=== PATIENT | female | born 1970 | race Caucasian/White ===

== ENCOUNTER → 2016-12-16 | Outpatient (CLI) | payer OTHER | LOC: FIMAGING 13:47 | PROVIDERS: ATTEND Internal Medicine | DX: Z12.31 Encounter for screening mammogram for malignant neoplasm of breast (principal) | CPT/HCPCS: G0202 ==

== ENCOUNTER → 2017-01-05 | Outpatient (CLI) | payer OTHER | LOC: FIMAGING 09:13 | PROVIDERS: ATTEND Surgery | DX: K21.9 Gastro-esophageal reflux disease without esophagitis (principal) ==

== ENCOUNTER 2017-01-16 05:57 | Observation (INO) | payer OTHER ==
[2017-01-16] MEDS ORDERED: LIDOCAINE 1% 2 ML INJ ID PRN (06:29)
[2017-01-16] MEDS ORDERED: LR 1,000 ML IV ONE (06:29)
[2017-01-16] MEDS ORDERED: LIDOCAINE 1% 5 ML SDV ONE (06:31)
[2017-01-16] MEDS ORDERED: BUPIVACAINE 0.5% 30 ML SDV ONE (06:33)
[2017-01-16] MEDS ORDERED: MIDAZOLAM 2 MG/2 ML VIAL IVP ONE (06:56)
[2017-01-16] MEDS ORDERED: SCOPOLAMINE HYDROBROMIDE 1.5 MG PATCH TD SCH (07:00)
--- NOTE | 2017-01-16 07:00 | PDANEPAE ---
ANE History of Present Illness Otherwise healthy female with PMH of well controlled GERDs with prilosec. She is also on meloxican for lower back pain. Denies other medical issues and has had anesthesia without complications. ANE Past Medical History - Cardiovascular History Hx Hypertension: No Hx Arrhythmias: No Hx Chest Pain: No Hx Coronary Artery / Peripheral Vascular Disease: No Hx CHF / Valvular Disease: No Hx Palpitations: No - Pulmonary History Hx COPD: No Hx Asthma/Reactive Airway Disease: No Hx Recent Upper Respiratory Infection: No Hx Oxygen in Use at Home: No - Neurologic History Hx Cerebrovascular Accident: No Hx Seizures: No Hx Dementia: No - Endocrine History Hx Diabetes: No - Renal History Hx Renal Disorders: No - Liver History Hx Hepatic Disorders: No - Neurological & Psychiatric Hx Hx Neurological and Psychiatric Disorders: No - Cancer History Hx Cancer: No - Congenital Disorder History Hx Congenital Disorders: No - GI History Hx Gastrointestinal Disorders: Yes - Chronic Pain History Chronic Pain: No ANE Review of Systems - Exercise capacity METS (RN): 5 METS ANE Patient History - Allergies Allergies/Adverse Reactions: No Known Allergies Allergy (Verified 01/16/17 06:13) - Home Medications Home Medications: Herbals/Supplements -Info Only 1 ea PO DAILY 12/30/16 [Last Taken 01/15/17] Omeprazole [Prilosec 20 mg] 20 mg PO DAILY 12/30/16 [Last Taken 01/15/17] Meloxicam 01/16/17 [Last Taken 01/15/17] - NPO status NPO Since - Liquids (Date): 01/15/17 NPO Since - Liquids (Time): 23:00 NPO Since - Solids (Date): 01/15/17 NPO Since - Solids (Time): 18:00 - Smoking Hx Smoking Status: Never smoked - Family Anes Hx Family Hx Anesthesia Complications: none ANE Labs/Vital Signs - Vital Signs Blood Pressure: 149/93 Heart Rate: 68 Respiratory Rate: 16 O2 Sat (%): 96 Height: 160.02 cm Weight: 77.111 kg ANE Physical Exam - Airway Neck exam: FROM Mallampati Score: Class 1 Mouth exam: normal dental/mouth exam - Pulmonary Pulmonary: no respiratory distress - Cardiovascular Cardiovascular: regular rate and rhythym - ASA Status ASA Status: II ANE Anesthesia Plan Anesthesia Plan: general endotracheal anesthesia Urgent/Emergent Case: Billy wilson completed preop but documented later for safe timely pt care
[2017-01-16] MEDS ORDERED: SCOPOLAMINE HYDROBROMIDE 1.5 MG PATCH TD ONE (07:01)
[2017-01-16] MEDS ORDERED: HYDROmorphONE/DILAUDID 2 MG/ML INJ ONE (07:02)
[2017-01-16] MEDS ORDERED: PROPOFOL 200 MG/20 ML VIAL ONE (07:02)
[2017-01-16] MEDS ORDERED: fentaNYL 100 MCG/2 ML INJ ONE (07:02)
[2017-01-16] MEDS ORDERED: DEXAMETHASONE 4 MG/ML VIAL ONE (07:02)
[2017-01-16] MEDS ORDERED: ONDANSETRON 4 MG/2 ML VIAL ONE (07:02)
[2017-01-16] MEDS ORDERED: ROCURONIUM 50 MG/5 ML VIAL ONE (07:02)
--- NOTE | 2017-01-16 07:22 | PDGENHP ---
History and Physical History and Physical: HPI: H/o GERD. Currently on PPI's with symptoms. EGD shows min HH. PMHx: LBP, GERD Meds: meloxicam, omeprazole NKDA PE: VSS Alert, NAD RRR CTA B Abd soft, NTTP A/P: GERD. Risks/benefits of robotic fundoplication reviewed, questions answered. Will proceed with fundoplication.
[2017-01-16] MEDS ORDERED: NEOSTIGMINE METHYLSULFATE 5 MG/5 ML SYR ONE (08:06)
[2017-01-16] MEDS ORDERED: GLYCOPYRROLATE 0.2 MG/1 ML VIAL ONE ×2 (08:06)
[2017-01-16] MEDS ORDERED: OXYCODONE/APAP 5/325 TAB PO PRN ×2 (08:16→09:49)
[2017-01-16] MEDS ORDERED: MEPERIDINE 25 MG/ML SYR IVP PRN (08:16)
[2017-01-16] MEDS ORDERED: LR 500 ML IV PRN (08:16)
[2017-01-16] MEDS ORDERED: fentaNYL 100 MCG/2 ML INJ IVP PRN (08:16)
[2017-01-16] MEDS ORDERED: HYDROmorphONE/DILAUDID 1 MG/ML SYR IVP PRN ×2 (08:16→09:49)
[2017-01-16] MEDS ORDERED: NALOXONE HCL 0.4 MG/ML INJ IVP PRN (08:16)
[2017-01-16] MEDS ORDERED: METOCLOPRAMIDE 10 MG/2 ML VIAL IVP PRN (08:16)
[2017-01-16] MEDS ORDERED: ONDANSETRON 4 MG/2 ML VIAL IVP PRN (09:49)
--- NOTE | 2017-01-16 09:51 | POSTOPPROG ---
Post Op Note Date of Operation: 01/16/17 Surgeon: Kai Álvarez Clinical Editor: Vivi Barros Anesthesiologist: Dr. Cordero Anesthesia: GET(General Endotracheal) Pre-op Diagnosis: GERD Post-op Diagnosis: GERD Procedure: Robotic fundoplication/HH repair Findings: Mod HH Inf/Abcess present in the surg proc area at time of surgery?: No EBL: Minimal
--- NOTE | 2017-01-16 09:57 | POSTANESTH ---
Post Anesthetic Evaluation Cardiovascular Status: Normal, Stable Respiratory Status: Normal, Stable Level of Consciousness/Mental Status: Can Participate in Eval Pain Control: Adequate, Prn Tx Ordered Nausea/Vomiting Control: Adequate, Prn Tx Ordered Complications Possibly Related to Anesthesia: None Noted
[2017-01-16] MEDS ORDERED: LR 1,000 ML IV SCH (10:00)
--- NOTE | 2017-01-16 10:49 | GOP ---
[f rep st] OPERATIVE REPORT DATE OF OPERATION: 01/16/2017 SURGEON: Facundo Álvarez MD 4TH GRADE MATH TEACHER: Vivi Barros CFA, whose presence was requested by me and medically necessary for the safe and timely completion of this case. ANESTHESIA: General endotracheal anesthesia. ANESTHESIOLOGIST: Dr. Escobar. PREOPERATIVE DIAGNOSIS: Gastroesophageal reflux disease. POSTOPERATIVE DIAGNOSIS: Gastroesophageal reflux disease. PROCEDURE PERFORMED: Robotic partial fundoplication with hiatal hernia repair. FINDINGS: Patient had a moderate hiatal hernia. ESTIMATED BLOOD LOSS: 20 cc. INDICATIONS: 47-year-old female with a history of reflux. Risks and benefits of the procedure were discussed with the patient, questions were answered. She wished to proceed. DESCRIPTION OF PROCEDURE: The patient was in the supine position initially. After the induction of adequate general endotracheal anesthesia, the patient was moved to the modified lithotomy position. The patient was then prepped and draped in the standard surgical fashion. Marcaine 0.5% was injected throughout the supraumbilical area for local anesthesia. An 8-mm incision was made and the abdominal wall was elevated. A Veress needle was inserted and after noting proper pressures, the abdomen was insufflated with carbon dioxide. An 8-mm trocar was placed and a camera followed. There was no apparent damage from trocar placement. Four more ports were placed, three 8-mm ports in the upper abdomen and one 5-mm port in the right mid abdomen. These were all placed under direct vision after injecting 0.5% Marcaine for local anesthesia. The robot was then docked without difficulty. Robotic instruments were then used to perform the dissection. The Harmonic scalpel was used to take down the gastrohepatic ligament. Dissection was then carried over the esophagus exposing the right eli. The dissection proceeded laterally and the superior portion of the esophagus and the left eli were exposed. The vagus nerves were seen and preserved throughout the entire case. Next, the posterior window was opened using blunt dissection and the Harmonic scalpel. Once this window was achieved, attention was turned to the short gastrics. A significant portion of the short gastric vessels was taken down using a Harmonic scalpel. This freed up the fundus in its entirety. The mediastinal dissection was then performed. This was carefully performed using blunt dissection and minimal energy component. Once the entire visible portion of the esophagus was freed and the gastroesophageal junction returned to the abdomen, the repair of the hiatal hernia ensued. Interrupted sutures of 3-0 silk were used to approximate the hiatus posteriorly. Enough room was seen for the esophagus and an instrument tip. The fundus was then brought posteriorly to the esophagus and the wrap performed. A partial wrap was completed. The fundus of the stomach was anchored to the crura on either side of the esophagus. Next, a partial posterior 270-degree wrap was completed by suturing the fundus to the esophagus using interrupted 3-0 silk sutures. This was a loose floppy wrap. No other lesions were identified at this time. Good hemostasis was noted. The robot was then undocked. Trocars were removed under direct vision. The pneumoperitoneum was allowed to escape. The wounds were thoroughly irrigated. The skin at all sites was closed using 4-0 Monocryl in a subcuticular suture. Wounds were sterilely dressed and the patient was returned to the supine position and extubated. The patient was then taken to the PACU in stable condition. COMPLICATIONS: None. DRAINS: None. /[id number]/MODL MTDD
[2017-01-16] MEDS ORDERED: cefOXitin SODIUM 1 GM in D5W 50 ML IV SCH (12:00)
[2017-01-17] MEDS ORDERED: PATCH REMOVAL 1 EA PATCH TD ONE (06:57)
--- NOTE | 2017-01-17 07:48 | SOAPPROG ---
SOAP Progress Note Assessment/Plan: Assessment: s/p robotic fundoplication, doing well. D/c. Plan: 01/17/17 07:47 Subjective: No complaints, minimal pain, no N/V. Chani clears. Objective: Vital Signs Temp Pulse Resp BP Pulse Ox 36.8 C 70 12 116/70 96 01/17/17 04:00 01/17/17 04:00 01/17/17 04:00 01/17/17 04:00 01/17/17 04:00 01/16/17 01/17/17 01/18/17 05:59 05:59 05:59 Intake Total 3025 Output Total 2000 Balance 1025 Alert, NAD RRR Abd soft, NTTP Inc C/D/I ICD10 Worksheet Patient Problems: Problems Problem Status Onset GERD (gastroesophageal reflux disease) Acute - ICD10 Problem Qualifiers (1) GERD (gastroesophageal reflux disease) Qualifiers: Esophagitis presence: E
[2017-01-17 08:40] VITALS: BP 129/75; PULSE 59; RESP 16; TEMP 99; O2SAT 97
== END 2017-01-17 10:07 | disposition home or self-care (01) ==
LOC: F3N 05:57 → F3E 10:28 → PREINTOOBSV 10:29 → PREOBSVTOIN 10:40
PROVIDERS: ADMIT Surgery; ATTEND Surgery
PROC: 0DV44ZZ Restriction of Esophagogastric Junction, Percutaneous Endoscopic Approach (ICD-10-PCS; principal; 2017-01-16 07:30)
DX: K21.9 Gastro-esophageal reflux disease without esophagitis (principal); K44.9 Diaphragmatic hernia without obstruction or gangrene
CPT/HCPCS: 43280; G0378; J0697; J1100; J1170; J2250; J2405; J2704; J2710; J3010